=== PATIENT | male | born 1980 | race American Indian/Alaskan Native ===

== ENCOUNTER 2017-05-24 04:05 | Emergency (ER) | payer OTHER ==
[2017-05-24 04:16] VITALS: PULSE 80; RESP 14; O2SAT 97
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
[2017-05-24 04:51] VITALS: BP 130/70; TEMP 97.5
== END 2017-05-24 05:00 | disposition home or self-care (01) ==
LOC: C.ER 04:05
DX: M79.601 Pain in right arm (principal)